=== PATIENT | female | born 1985 | race Caucasian/White ===

== ENCOUNTER 2019-02-09 12:46 | Emergency (ER) | payer SELFPAY ==
[~2019-02-09] VITALS: Ht 152.4 cm; Wt 63.5 kg
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
[2019-02-09 14:44] LABS: BASOPHILS % (AUTO) 0.3 % (0.0-2.0); EOSINOPHILS % (AUTO) 0.1 % (0.0-6.0); HEMATOCRIT 40 % (33-45); HEMOGLOBIN 13.1 g/dL (11.5-14.8); LYMPHOCYTES # (AUTO) 2.5 /CMM (0.8-4.8); LYMPHOCYTES % (AUTO) 18.4 % (20.0-44.0); MEAN CORPUSCULAR HGB CONC 33 g/dl (31.0-36.0); MEAN CORPUSCULAR VOLUME 85 fL (82-100); MONOCYTES # (AUTO) 0.6 /CMM (0.1-1.30); MONOCYTES % (AUTO) 4.4 % (2.0-12.0); NEUTROPHILS # (AUTO) 10.3 /CMM (1.8-8.9); NEUTROPHILS % (AUTO) 76.8 % (43.0-81.0); PLATELET COUNT (AUTO) 377 /CMM (150-450); RED BLOOD CELL COUNT(AUTO) 4.72 MIL/uL (4.0-5.2); WHITE BLOOD COUNT (AUTO) 13.4 K/uL (4.3-11.0)
[2019-02-09 14:49] LABS: APPEARANCE,URINE Cloudy (CLEAR); BILIRUBIN,URINE Negative (NEGATIVE); BLOOD, URINE Trace-lysed Ery/uL (NEGATIVE); COLOR,URINE Yellow (YELLOW); KETONES,URINE 15 (NEGATIVE); LEUKOCYTE ESTERASE ,URINE Small (NEGATIVE); NITRITE, URINE Positive (NEGATIVE); PH,URINE 5.5 (5.0-8.0); PROTEIN,URINE Trace mg/dl (NEGATIVE); UGLUCOSE Negative (NEGATIVE); UROBILINOGEN,URINE 0.2 EU/dL (0.2)
[2019-02-09 14:51] LABS: CALCIUM, SERUM 9.4 mg/dL (8.5-10.1); CARBON DIOXIDE 31 mmol/L (21-32); CHLORIDE 103 mmol/L (98-107); CREATININE 0.7 mg/dL (0.6-1.3); GLUCOSE 95 mg/dL (74-106); POTASSIUM 3.3 mmol/L (3.5-5.1); SODIUM SERUM 144 mmol/L (136-145); UREA NITROGEN, BLOOD 14 mg/dL (7-18)
[2019-02-09 14:56] LABS: ALANINE AMINOTRANSFERASE 101 U/L (12-78); ALBUMIN 3.6 g/dL (3.4-5.0); ALKALINE PHOSPHATASE 71 U/L (46-116); ASPARTATE AMINOTRANSFERASE 117 U/L (15-37); BILIRUBIN,DIRECT 0.2 mg/dL (0.0-0.2); BILIRUBIN,TOTAL 0.6 mg/dL (0.2-1.0); TOTAL PROTEIN, SERUM 7.4 g/dL (6.4-8.2)
--- NOTE | 2019-02-09 14:56 | NUR ---
PT TO CT AT THIS TIME
[2019-02-09 14:59] LABS: ACETAMINOPHEN 0 ug/ml (10-30); ALCOHOL, BLOOD < 3 mg/dL (0-0); SALICYLATE 1.3 mg/dL (2.8-20.0)
[2019-02-09] MEDS ORDERED: IV NS 0.9% 1,000 ML BAG IV ONE (15:00)
[2019-02-09 15:21] LABS: RBC,URINE 0-3 /HPF (0-2)
[2019-02-09 15:22] LABS: BACTERIA,URINE 4+ /HPF (None Seen); SQUAMOUS EPITHELIAL CELL,UR Moderate /HPF (None Seen); URINE AMORPHOUS URATE Moderate /HPF (None Seen)
[2019-02-09] MEDS ORDERED: CEFTRIAXONE 1GM BAG (ER ONLY) 1 GM/50 ML PIGGYBACK IV ONE (15:30)
[2019-02-09] MEDS: POTASSIUM CL. PREMIX PERIPHER. 50 ML IV SCH ×4 (15:36→19:11)
[2019-02-09] MEDS ORDERED: CEFTRIAXONE 1GM BAG (ER ONLY) 50 ML IV ONE (15:41)
[2019-02-09] MEDS ORDERED: POTASSIUM CL. PREMIX PERIPHER. 200 ML ONE (15:41)
[2019-02-09] MEDS ORDERED: TETRAcaine 5 ML BOTTLE EACHEYE ONE (18:00)
[2019-02-09] MEDS ORDERED: FLUORESCEIN SODIUM OPHTH 1 EA STRIP OP ONE (18:00)
[2019-02-09] MEDS ORDERED: FLUORESCEIN SODIUM OPHTH 1 EA STRIP ONE (19:02)
[2019-02-09] MEDS ORDERED: LORAZEPAM INJ 2 MG/ML VIAL IV ONE (19:30)
[2019-02-09] MEDS ORDERED: KETOROLAC TROMETHAMINE INJ 30 MG/ML VIAL IV ONE (19:30)
--- NOTE | 2019-02-09 19:37 | NUR ---
GUS LACEY SPEAKING TO RIGO BROTHERS AT THIS TIME REGARIDNG EVAL .
--- NOTE | 2019-02-09 19:52 | NUR ---
TALKED WITH RIGO AND SHE IS NOT COMFORTABLE WITH BREAKING THE HOLD. SHE STATES TO AT LEAST RE-EVALUATE IN [address] TO PL[address] PT IN THE MORNING.
[2019-02-09] MEDS: CIPROFLOXACIN HCL 0.3% 5 ML BOTTLE EACHEYE SCH ×2 (20:00→21:00)
[2019-02-09] MEDS ORDERED: LORAZEPAM INJ 2 MG/ML VIAL ONE (20:25)
[2019-02-09] MEDS ORDERED: KETOROLAC TROMETHAMINE INJ 30 MG/ML VIAL ONE (20:25)
--- NOTE | 2019-02-09 20:26 | NUR ---
CALLED PHARM FOR CIPRO EYE DROPS.
--- NOTE | 2019-02-09 20:48 | NUR ---
PER PHARMACY CIPRO EYE DROPS; AVAILABLE ON HAND: GAVIFLOCOCIN; GIVEN TO BOTH EYE PER ERIK BECERRA
--- NOTE | 2019-02-09 21:50 | NUR ---
GAVIFLOCOCIN 1 DROP TO BOTH EYES; GIVEN Q1HR PER ORDER
--- NOTE | 2019-02-10 00:41 | NUR ---
Received report from ENRIQUETA lawler pt on 5150 hold per [employer], pending psych eval.
--- NOTE | 2019-02-10 01:00 | NUR ---
GAVIFLOCOCIN 1 DROP TO BOTH EYES; GIVEN Q1HR PER ORDER
--- NOTE | 2019-02-10 02:00 | NUR ---
GAVIFLOCOCIN 1 DROP TO BOTH EYES; GIVEN Q1HR PER ORDER
--- NOTE | 2019-02-10 03:00 | NUR ---
GATIFLOCOCIN 1 DROP TO BOTH EYES; GIVEN Q1HR PER ORDER.
--- NOTE | 2019-02-10 04:00 | NUR ---
GATIFLOCOCIN 1 DROP TO BOTH EYES; GIVEN Q1HR PER ORDER.
[2019-02-10] MEDS ORDERED: MISCELLANEOUS MED 1 EA EA XX ONE (04:30)
--- NOTE | 2019-02-10 05:00 | NUR ---
GATIFLOCOCIN 1 DROP TO BOTH EYES; GIVEN Q1HR PER ORDER.
--- NOTE | 2019-02-10 06:00 | NUR ---
GATIFLOCOCIN 1 DROP TO BOTH EYES; GIVEN Q1HR PER ORDER.
--- NOTE | 2019-02-10 06:55 | NUR ---
REPORT GIVEN TO ENRIQUETA ELAM FOR CONTINUITY OF CARE.
--- NOTE | 2019-02-10 08:08 | NUR ---
PAGED PET TEAM (REID) FOR EVAL
--- NOTE | 2019-02-10 08:24 | NUR ---
PT RESTING CALMLY ON 5150 HOLD ALL LABS DONE PENDING PLACEMENT TO PSYCH-FACILITY PT GIVEN MEAL TRAY WILL CONTINUE TO MONITOR VITAL SIGNS STABLE
--- NOTE | 2019-02-10 10:52 | NUR ---
PT SEEN BY CRISIS TEAM EVALUATED AND GIVEN PRESCRIPTION WILL FOLLOW UP WITHPMD.
--- NOTE | 2019-02-10 11:25 | NUR ---
PT GIVEN MEAL TRAY CLOTHES AND TAP CARD PT HOMELESS CHOICING TO BE DISCHARGE TO COMMUNITY
[2019-02-10 11:55] VITALS: BP 156/61
== END 2019-02-10 11:56 | disposition home or self-care (01) ==
LOC: ER 12:48
DX: S50.812A Abrasion of left forearm, initial encounter (principal); R45.851 Suicidal ideations; R40.4 Transient alteration of awareness; E86.0 Dehydration; F19.10 Other psychoactive substance abuse, uncomplicated; F11.10 Opioid abuse, uncomplicated; F15.10 Other stimulant abuse, uncomplicated; R74.0 Nonspecific elevation of levels of transaminase and lactic acid dehydrogenase [LDH]; E87.6 Hypokalemia; N39.0 Urinary tract infection, site not specified; D72.829 Elevated white blood cell count, unspecified; G93.0 Cerebral cysts; H17.9 Unspecified corneal scar and opacity; F17.200 Nicotine dependence, unspecified, uncomplicated; Z59.0 Homelessness; X78.8XXA Intentional self-harm by other sharp object, initial encounter; Y93.89 Activity, other specified; Y92.89 Other specified places as the place of occurrence of the external cause; Y99.8 Other external cause status
CPT/HCPCS: 36415; 70450; 80048; 80076; 80305; 80307; 80329; 81001; 84702; 84703; 85025; 87077; 87086; 87186; 96365; 96366; 96368; 96375; 99285; G0480; J0696; J1885; J2060; J3480; 81000-TC

== ENCOUNTER 2019-02-21 03:20 | Emergency (ER) | payer OTHER, MEDICAID ==
[~2019-02-21] VITALS: Ht 162.6 cm; Wt 65.8 kg
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
--- NOTE | 2019-02-21 03:35 | NUR ---
URINE SAMPLE COLLECTED AND SENT TO LAB.
--- NOTE | 2019-02-21 04:03 | NUR ---
BLOOD DRAWN BY LEAD MANUFACTURING ENGINEER.
[2019-02-21 04:15] LABS: CALCIUM, SERUM 9.6 mg/dL (8.5-10.1); CARBON DIOXIDE 28 mmol/L (21-32); CHLORIDE 105 mmol/L (98-107); CREATININE 1.2 mg/dL (0.6-1.3); GLUCOSE 80 mg/dL (74-106); POTASSIUM 3.1 mmol/L (3.5-5.1); SODIUM SERUM 143 mmol/L (136-145); UREA NITROGEN, BLOOD 14 mg/dL (7-18)
[2019-02-21 04:17] LABS: BASOPHILS # (AUTO) 0.1 /CMM (0.0-0.2); BASOPHILS % (AUTO) 0.5 % (0.0-2.0); EOSINOPHILS % (AUTO) 0.2 % (0.0-6.0); HEMATOCRIT 42 % (33-45); HEMOGLOBIN 13.6 g/dL (11.5-14.8); LYMPHOCYTES % (AUTO) 24.6 % (20.0-44.0); MEAN CORPUSCULAR HGB CONC 33 g/dl (31.0-36.0); MEAN CORPUSCULAR VOLUME 85 fL (82-100); MONOCYTES # (AUTO) 1.2 /CMM (0.1-1.30); MONOCYTES % (AUTO) 7.2 % (2.0-12.0); NEUTROPHILS % (AUTO) 67.5 % (43.0-81.0); PLATELET COUNT (AUTO) 409 /CMM (150-450); WHITE BLOOD COUNT (AUTO) 16.3 K/uL (4.3-11.0)
[2019-02-21 04:25] LABS: ALANINE AMINOTRANSFERASE 35 U/L (12-78); ALBUMIN 4.3 g/dL (3.4-5.0); ALCOHOL, BLOOD < 3 mg/dL (0-0); ALKALINE PHOSPHATASE 77 U/L (46-116); ASPARTATE AMINOTRANSFERASE 23 U/L (15-37); BILIRUBIN,DIRECT 0.1 mg/dL (0.0-0.2); BILIRUBIN,TOTAL 0.7 mg/dL (0.2-1.0); TOTAL PROTEIN, SERUM 7.9 g/dL (6.4-8.2)
[2019-02-21 04:26] LABS: ACETAMINOPHEN 0 ug/ml (10-30); SALICYLATE 0.8 mg/dL (2.8-20.0)
[2019-02-21] MEDS ORDERED: OLANZAPINE 5 MG TABLET PO ONE (04:30)
[2019-02-21] MEDS ORDERED: OLANZAPINE 5 MG TABLET ONE (04:59)
[2019-02-21 05:51] LABS: APPEARANCE,URINE Slightly Cloudy (CLEAR); BILIRUBIN,URINE SMALL (NEGATIVE); BLOOD, URINE Trace-lysed Ery/uL (NEGATIVE); COLOR,URINE Dark (YELLOW); KETONES,URINE Trace (NEGATIVE); LEUKOCYTE ESTERASE ,URINE Negative (NEGATIVE); NITRITE, URINE Negative (NEGATIVE); PROTEIN,URINE Trace mg/dl (NEGATIVE); UGLUCOSE Negative (NEGATIVE); UROBILINOGEN,URINE 0.2 EU/dL (0.2)
--- NOTE | 2019-02-21 06:01 | NUR ---
RECEIVED CALL FROM [facility]. PT HAS [facility] INSURANCE. AWAITING TRANSFER INFORMATION. AUTH#[id number].
[2019-02-21 06:15] LABS: BACTERIA,URINE Few /HPF (None Seen); SQUAMOUS EPITHELIAL CELL,UR Moderate /HPF (None Seen); URIC ACID CRYSTALS,URINE Few /HPF (None Seen); URINE AMORPHOUS URATE Few /HPF (None Seen); WBC,URINE 0-2 /HPF (0-3)
[2019-02-21 06:16] LABS: MUCUS,URINE Few /LPF (None Seen)
--- NOTE | 2019-02-21 06:34 | NUR ---
ESTRADA REQUESTING PATIENT BE EVALUATED HERE BY ELECTRIC POWER LINE REPAIRER. PLEASE CALL AFTER PT EVALUATION
--- NOTE | 2019-02-21 08:35 | NUR ---
CALLED [facility] [phone] WILL COME BY.
--- NOTE | 2019-02-21 09:43 | NUR ---
patient resting, sitter at bedside for constant monitoring.
--- NOTE | 2019-02-21 10:04 | NUR ---
Mahnaz RANCH HAND SUPERVISOR at bedside for eval.
--- NOTE | 2019-02-21 10:41 | NUR ---
Called [facility] and informed regarding patient that verbalized that she is not SI as per Mahnaz ANALYST COMPETITIVE INTELLIGENCE and made aware.
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
--- NOTE | 2019-02-21 12:01 | NUR ---
CALLED [facility] [employer]. SPOKE TO BRAIDING MACHINE OPERATOR 586. SHE DISPATCHED OFFICERS
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
[2019-02-21 12:27] VITALS: BP 141/76
--- NOTE | 2019-02-21 12:34 | NUR ---
Laurie SW at bedside and spoke to the patient.
--- NOTE | 2019-02-21 12:48 | NUR ---
[employer] at bedside
--- NOTE | 2019-02-21 13:36 | NUR ---
CALLED SW AND LEFT A MESSAGE TO HAVE HER COME SPEAK TO PT
--- NOTE | 2019-02-21 13:42 | NUR ---
SW WAS SPEAKING TO PT
--- NOTE | 2019-02-21 13:48 | NUR ---
Danica silva in [facility] - 02/21/19 at 1400 by LISETTE [phone]
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
--- NOTE | 2019-02-21 14:07 | NUR ---
Patient given written and verbal discharge instructions. Patient verbalizes understanding of instructions. Patient is ambulatory with steady gait. Refuses offer of usp placement. Patient given list of available shelters in surrounding area.
== END 2019-02-21 14:07 | disposition home or self-care (01) ==
LOC: ER 03:20
DX: R45.851 Suicidal ideations (principal); F31.9 Bipolar disorder, unspecified; F20.9 Schizophrenia, unspecified; I10 Essential (primary) hypertension; E11.9 Type 2 diabetes mellitus without complications; F10.10 Alcohol abuse, uncomplicated; F17.200 Nicotine dependence, unspecified, uncomplicated; Y90.0 Blood alcohol level of less than 20 mg/100 ml; Z60.2 Problems related to living alone
CPT/HCPCS: 36415; 80048; 80076; 80305; 80307; 80329; 81001; 85025; 99284; 99406; G0480; 81000-TC

== ENCOUNTER 2020-11-19 15:47 | Inpatient (IN) | payer MEDICAID, OTHER ==
[2020-11-19] VITALS (12 sets, daily range): BP systolic 104–133; BP diastolic 58–84
[~2020-11-19] VITALS: Ht 162.6 cm; Wt 67.6 kg
[2020-11-19] MEDS ORDERED: AMMONIA NASAL INHALATION 1 EA PACK NAS ONE (15:49)
--- NOTE | 2020-11-19 16:04 | NUR ---
urine collected and sent to the lab
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
--- NOTE | 2020-11-19 16:13 | NUR ---
PT TO CT VIA [facility].
[2020-11-19] MEDS ORDERED: FLUT16SP16 BNOSTRILS (16:18)
[2020-11-19] MEDS ORDERED: IBUP-1957 PO (16:18)
[2020-11-19] MEDS ORDERED: OMEP20CA15 PO (16:18)
[2020-11-19] MEDS ORDERED: DIVA-78 PO (16:18)
[2020-11-19] MEDS ORDERED: FLUT1BLS IH (16:18)
[2020-11-19] MEDS ORDERED: LISI20TA30 PO (16:18)
[2020-11-19] MEDS ORDERED: ALBU18HF2 IH (16:18)
[2020-11-19] MEDS ORDERED: SUMA50TA17 PO (16:18)
[2020-11-19] MEDS ORDERED: LIDO30AD10 TP (16:18)
[2020-11-19] MEDS ORDERED: QUET100T PO (16:18)
[2020-11-19] MEDS ORDERED: BUSP10TA3 PO (16:18)
[2020-11-19 16:21] LABS: BASOPHILS # (AUTO) 0.1 K/uL (0.0-0.2); BASOPHILS % (AUTO) 0.4 % (0.0-2.0); EOSINOPHILS % (AUTO) 0.6 % (0.0-6.0); HEMATOCRIT 39 % (33-45); HEMOGLOBIN 12.3 g/dL (11.5-14.8); LYMPHOCYTES # (AUTO) 3.9 K/uL (0.8-4.8); LYMPHOCYTES % (AUTO) 26.8 % (20.0-44.0); MEAN CORPUSCULAR HGB CONC 32 g/dl (31.0-36.0); MEAN CORPUSCULAR VOLUME 84 fL (82-100); MONOCYTES # (AUTO) 1.2 K/uL (0.1-1.30); MONOCYTES % (AUTO) 7.9 % (2.0-12.0); NEUTROPHILS # (AUTO) 9.3 K/uL (1.8-8.9); NEUTROPHILS % (AUTO) 64.3 % (43.0-81.0); PLATELET COUNT (AUTO) 334 K/uL (150-450); RED BLOOD CELL COUNT(AUTO) 4.58 MIL/uL (4.0-5.2); WHITE BLOOD COUNT (AUTO) 14.5 K/uL (4.3-11.0)
[2020-11-19 16:33] LABS: CALCIUM, SERUM 8.8 mg/dL (8.5-10.1); CARBON DIOXIDE 26 mmol/L (21-32); CHLORIDE 105 mmol/L (98-107); CREATININE 0.7 mg/dL (0.6-1.3); GLUCOSE 82 mg/dL (74-106); POTASSIUM 3.8 mmol/L (3.5-5.1); SODIUM SERUM 144 mmol/L (136-145); UREA NITROGEN, BLOOD 18 mg/dL (7-18)
[2020-11-19 16:35] LABS: BILIRUBIN,URINE Negative (NEGATIVE); COLOR,URINE YELLOW (YELLOW); LEUKOCYTE ESTERASE ,URINE Negative (NEGATIVE); NITRITE, URINE Negative (NEGATIVE); PROTEIN,URINE Negative (NEGATIVE); UGLUCOSE Negative (NEGATIVE); UROBILINOGEN,URINE 0.2 EU/dL (0.2)
[2020-11-19 16:39] LABS: ALANINE AMINOTRANSFERASE 19 U/L (12-78); ALBUMIN 4.3 g/dL (3.4-5.0); ALCOHOL, BLOOD < 3 mg/dL (0-0); ALKALINE PHOSPHATASE 69 U/L (46-116); ASPARTATE AMINOTRANSFERASE 17 U/L (15-37); BILIRUBIN,DIRECT 0.1 mg/dL (0.0-0.2); BILIRUBIN,TOTAL 0.5 mg/dL (0.2-1.0)
[2020-11-19 16:40] LABS: ACETAMINOPHEN < 10 ug/ml (10-30)
[2020-11-19 16:48] LABS: BACTERIA,URINE Rare /HPF (None Seen); RBC,URINE 21-50 /HPF (0-2); WBC,URINE 0-2 /HPF (0-3)
--- NOTE | 2020-11-19 17:11 | NUR ---
PT ASLEEP, WILL MOVE WITH PAINFUL STIMULI, VSS. RR EVEN & UNLABORED. ON TELE, SR. O2 SAT 100% ON 2L. WILL CONT TO MONITOR.
[2020-11-19 17:18] LABS: VALPROIC ACID 285 ug/mL (50-100)
[2020-11-19] MEDS ORDERED: PIPERACILLIN /TAZOBACTAM 3.375 G in IV D5W 50 ML IV ONE (17:30)
[2020-11-19] MEDS ORDERED: IV NS 0.9% 1,000 ML IV ONE ×2 (17:30)
[2020-11-19] MEDS ORDERED: NALOXONE HCL 0.4 MG/ML AMPUL ONE (17:59)
[2020-11-19] MEDS ORDERED: NALOXONE HCL 0.4 MG/ML AMPUL IV ONE (18:00)
--- NOTE | 2020-11-19 18:22 | NUR ---
CALLED NURSING SUP FOR ICU BED.
--- NOTE | 2020-11-19 18:28 | NUR ---
NURSING SUP GAVE ICU 257.
[2020-11-19] MEDS ORDERED: NS 0.9% IV ONE (18:30)
[2020-11-19] MEDS ORDERED: MAG HYDROX/AL HYDROX/SIMETH 30 ML UDC PO PRN (18:30)
[2020-11-19] MEDS ORDERED: ONDANSETRON HCL/PF 4 MG/2 ML VIAL IVP PRN (18:30)
[2020-11-19] MEDS ORDERED: NOREPINEPHRINE 8 MG in IV NS 0.9% 242 ML IV PRN (18:30)
[2020-11-19] MEDS ORDERED: MAGNESIUM HYDROXIDE 30 ML UDC PO PRN (18:30)
--- NOTE | 2020-11-19 18:41 | NUR ---
REPORT GIVEN TO ENRIQUETA HARDWICK FOR ANDREA.
[2020-11-19] MEDS ORDERED: ONDANSETRON HCL/PF 4 MG/2 ML VIAL ONE (18:45)
--- NOTE | 2020-11-19 19:02 | NUR ---
20MG OF ETOMIDATE IVP & 100MG OF VERURONIUM IVP GIVEN PER DR. FERRIS FOR INTUBATION.
[2020-11-19] MEDS ORDERED: PROPOFOL 100 ML IV PRN (19:30)
[2020-11-19] MEDS ORDERED: FENTANYL CITRAT IV 2,500 MCG in IV NS 0.9% 200 ML IV PRN (19:30)
[2020-11-19] MEDS ORDERED: PROPOFOL 100 ML ONE (19:31)
--- NOTE | 2020-11-19 19:44 | NUR ---
OG TUBE INSERTED 55CM ON THE LIP. VERIFIED BY TWO NURSES.
[2020-11-19] MEDS ORDERED: VANCOMYCIN 1 GM VIAL ONE (19:58)
[2020-11-19] MEDS: VANCOMYCIN 1 GM in IV D5W 250 ML IV SCH (20:06)
[2020-11-19 20:23] LABS: ABG BASE EXCESS -9.5 mmol/L; ABG PCO2 40.6 mmHg (35.0-45.0); ABG PH 7.246 (7.350-7.450); ABG PO2 376.6 mmHg (75.0-100.0); AaDO2 295.8 mmHg; COHb 0.4 % (0.5-1.5); MetHb 0.5 % (0.0-1.5); O2Hb 98.1 % (94.0-97.0); PEEP,BG 0 cm H2O; SITE, ABG Right Brachial; VT, ABG 500 mL
--- NOTE | 2020-11-19 20:50 | NUR ---
RECEIVED PT FROM ER VIA [facility] ORALLY INTUBATED OF ETT 7/23CM ,AND SEDATED, VENT SETTING PER MD FIO2 50% PEEP 0 SPO2 99%, TOLERATING WELL, SAFELY TRANSFER FROM [facility] TO BED, HOOKED TO MONITOR WITH READING SINUS RHYTHM 80'S,V/S CHECKED AND RECORDED, PT HAVE RIJ TLC AND LAC# 18 WITH ONGOING PROPOFOL @ 5MCG/KG/MIN AND LEVOPHED @ 0.2 MCG/KG/MIN INFUSING WELL, PT HAVE BILATERAL WRIST SOFT RESTRAINT FOR SELF EXTUBATION PRECAUTION,HEAD TO TOE ASSESSMENT DONE, INITIAL ASSESSMENT DONE, SAFETY PRECAUTION INITIATED BED ON LOWEST POSITION AND LOCKED SIDE RAILS UP X2 CALL LIGHT WITHIN REACH WILL CONT TO MONITOR
[2020-11-19] MEDS: PROPOFOL 100 ML IV PRN (20:54)
[2020-11-19] MEDS: NOREPINEPHRINE 8 MG in IV NS 0.9% 242 ML IV PRN (21:04)
[2020-11-19] MEDS: IV NS 0.9% 1,000 ML IV PRN (21:04)
--- NOTE | 2020-11-19 21:12 | NUR ---
RECEIVED PT INTUBATED 7.0 ETT SECURED AT 23CM LIP LINE. NO RESP DISTRESS. PT TOLERATING VENT SETTINGS. SX'D SMALL AMT OF THIN WHITE SECRETIONS. VENT ALARMS SET AND AUDIBLE. CONTINUE TO MONITOR. Addendum: 11/19/20 at 2113 by DAYANARA LERMA RT Amended: Links added.
[2020-11-19] MEDS: PIPERACILLIN /TAZOBACTAM 3.375 G in IV D5W 100 ML IV SCH (22:44)
[2020-11-20] VITALS (96 sets, daily range): BP systolic 68–147; BP diastolic 36–97
[2020-11-20 04:16] LABS: BASOPHILS % (AUTO) 0.2 % (0.0-2.0); EOSINOPHILS % (AUTO) 0.1 % (0.0-6.0); HEMATOCRIT 38 % (33-45); HEMOGLOBIN 12.1 g/dL (11.5-14.8); LYMPHOCYTES # (AUTO) 3.4 K/uL (0.8-4.8); LYMPHOCYTES % (AUTO) 21.1 % (20.0-44.0); MEAN CORPUSCULAR HGB CONC 32 g/dl (31.0-36.0); MEAN CORPUSCULAR VOLUME 85 fL (82-100); MONOCYTES # (AUTO) 1.1 K/uL (0.1-1.30); MONOCYTES % (AUTO) 6.8 % (2.0-12.0); NEUTROPHILS # (AUTO) 11.5 K/uL (1.8-8.9); NEUTROPHILS % (AUTO) 71.8 % (43.0-81.0); PLATELET COUNT (AUTO) 342 K/uL (150-450); RED BLOOD CELL COUNT(AUTO) 4.43 MIL/uL (4.0-5.2)
[2020-11-20] MEDS: PIPERACILLIN /TAZOBACTAM 3.375 G in IV D5W 100 ML IV SCH ×3 (04:18→21:25)
[2020-11-20 04:34] LABS: ALBUMIN 3.4 g/dL (3.4-5.0); BILIRUBIN,TOTAL 0.5 mg/dL (0.2-1.0); CALCIUM, SERUM 7.5 mg/dL (8.5-10.1); CREATININE 0.9 mg/dL (0.6-1.3); MAGNESIUM 1.9 mg/dL (1.8-2.4); PHOSPHORUS 2.6 mg/dL (2.5-4.9); POTASSIUM 3.2 mmol/L (3.5-5.1); TOTAL PROTEIN, SERUM 6.1 g/dL (6.4-8.2)
[2020-11-20 04:43] LABS: THYROID STIMULATING HORMONE 0.471 uIU/mL (0.358-3.74)
[2020-11-20] MEDS: IV NS 0.9% 1,000 ML IV PRN ×3 (05:01→21:33)
[2020-11-20] MEDS: PROPOFOL 100 ML IV PRN ×3 (06:05→21:25)
--- NOTE | 2020-11-20 06:49 | NUR ---
PT ON BED SEDATED ON ETT/VENT SETTING PER MD FIO2 40% SPO2 100% NO SIGN OF ANY RESPIRATORY DISTRESS NOTED,TELE MONITOR READS SINUS RHYTHM 60'S, ON PROPOFOL @ 20 MCG/KG/MIN LEVOPHED @ 0.1 MCG/KG/MIN AND NS @ 125ML/HR INFUSING WELL, ALL NEEDS ATTENDED, STILL ON BILATERAL WRIST SOFT RESTRAINTS FOR SELF EXTUBATION PRECAUTION, CIRCULATION WAS CHECKED REGULARLY, BED ON LOWEST POSITION AND LOCKED SIDE RAILS UP X2 WILL ENDORSED TO AM SHIFT NURSE
[2020-11-20] MEDS ORDERED: POTASSIUM CHLORIDE 20 MEQ POWDER PACKET GT SCH (08:00)
[2020-11-20] MEDS: VANCOMYCIN 1 GM in IV D5W 250 ML IV SCH (08:23)
[2020-11-20] MEDS: HYDROCORTISONE SOD SUCCINATE 100 MG/2 ML VIAL IV SCH ×3 (08:33→21:26)
[2020-11-20] MEDS: ASPIRIN 81 MG TAB.CHEW PO SCH (08:33)
[2020-11-20] MEDS ORDERED: FEE EMEERGENCY 1 MIN EA MC ONE (10:04)
[2020-11-20] MEDS ORDERED: ETOMIDATE 2 MG/ML VIAL IV ONE (10:04)
[2020-11-20] MEDS ORDERED: ROCURONIUM BROMIDE 50 MG/5 ML IV ONE (10:04)
[2020-11-20] MEDS: NOREPINEPHRINE 8 MG in IV NS 0.9% 242 ML IV PRN (10:07)
[2020-11-20 11:03] LABS: ABG BASE EXCESS -6.5 mmol/L; ABG OXYGEN SATURATION 98.9 % (92.0-98.5); ABG PCO2 35.3 mmHg (35.0-45.0); ABG PH 7.337 (7.350-7.450); AaDO2 84.6 mmHg; COHb 0.1 % (0.5-1.5); MetHb 0.2 % (0.0-1.5); O2Hb 98.6 % (94.0-97.0); SITE, ABG Right Radial; VT, ABG 500 mL
--- NOTE | 2020-11-20 11:06 | NUR ---
RN NOTE 0715: Received patient with ETT to vent, tolerated settings. With RIJ TLC intact, on Levo @ 0.1mcg and Diprivan @ 20mcg, will titrate as ordered. With OGT intact, clamped. Rudolph cath intact, noted with clear yellow urine drained to BSD. IVF infusing as ordered. 0830: Rendered sedation vacation, patient is agitated AEB moving extremities and kicking. Titrated Diprivan for sedation, see IV spreadsheet. 1030: CN called poison control, with recommendations carried out per MD, ordered Ammonia level and Depakote level. If Ammonia level is greater than 100, loading L Carnitine 100mg/kg IV infusion for 30min and maintenance L Carnitine 50mg/kg q8 IV until clinically improves. 1100: S/E by Dr. Peterson, aware for ABG result, RT placed FIO2 to 30%. No weaning for today.
[2020-11-20] MEDS ORDERED: IV D5/0.45 NACL 1,000 ML IV ONE (11:30)
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
[2020-11-20 11:48] LABS: VALPROIC ACID 122 ug/mL (50-100)
[2020-11-20 11:49] LABS: SERUM AMMONIA 20 umol/L (11-32)
--- NOTE | 2020-11-20 13:39 | NUR ---
RN NOTE production control clerk informed me Dr. Andrews will be the PCP for the patient here. Informed Dr. Castro and Dr. Andrews.
--- NOTE | 2020-11-20 14:30 | NUR ---
RN NOTE S/E by jeffrey Poe per .
--- NOTE | 2020-11-20 16:30 | NUR ---
RN NOTE Visited by maxim Ramirez [phone], brought belongings and added to list. Updated re: patient's condition.
[2020-11-20] MEDS ORDERED: IV NS 0.9% 500 ML IV ONE (18:00)
--- NOTE | 2020-11-20 19:35 | NUR ---
RN NOTES RECEIVED PT ORALLY INTUBATED WITH ETT 7 AND 23 CM AT LIPLINE WITH VENT SETTING AC 16 TV 500 AND FIO2 30%. PATIENT IS AWAKE COUGHING OUT HARD ON VENT ON SEDATION PROPOFOL TITRATED PROTOCOL ORDER. KEPT PT SEDATED. SR ON MONITOR. OGT INPLACED PATENCY CHECKED. WITH IV SITE ON LAC AND RIJ RUNNING WITH NS @ 125 ML/HR , PROPOFOL INCREASED ORDERED PROTOCOL AND LEVOPHED 0.1 MCG/KG/MIN TITRATED ORDERED. VALENCIA CATH DRAINED WITH YELLOW COLOR URINE. KEPT PT CLEAN AND COMFORTABLE IN BED. WILL CONTINUE TO MONITOR.
--- NOTE | 2020-11-20 21:18 | NUR ---
RN NOTES RECEIVED A CALL FROM POISON CONTROL SPOKE TO EDDIE AND UPDATED REGARDING PATIENT VALPROIC AND AMMONIA EVEL PER EDDIE NO SPECIFIC NEED TO DO RIGHT NOW CAUSE AMMONIA LEVEL IS OK.
[2020-11-21] VITALS (75 sets, daily range): BP systolic 84–159; BP diastolic 39–90
[2020-11-21] MEDS: NOREPINEPHRINE 8 MG in IV NS 0.9% 242 ML IV PRN (00:31)
[2020-11-21 04:27] LABS: HEMATOCRIT 34 % (33-45); LYMPHOCYTES # (AUTO) 1.4 K/uL (0.8-4.8); LYMPHOCYTES % (AUTO) 9.4 % (20.0-44.0); MEAN CORPUSCULAR HGB CONC 32 g/dl (31.0-36.0); MEAN CORPUSCULAR VOLUME 85 fL (82-100); MONOCYTES % (AUTO) 6.4 % (2.0-12.0); NEUTROPHILS # (AUTO) 12.9 K/uL (1.8-8.9); NEUTROPHILS % (AUTO) 84.2 % (43.0-81.0); PLATELET COUNT (AUTO) 294 K/uL (150-450); RED BLOOD CELL COUNT(AUTO) 4.01 MIL/uL (4.0-5.2); WHITE BLOOD COUNT (AUTO) 15.3 K/uL (4.3-11.0)
[2020-11-21] MEDS: PROPOFOL 100 ML IV PRN ×2 (04:34→09:53)
[2020-11-21] MEDS: PIPERACILLIN /TAZOBACTAM 3.375 G in IV D5W 100 ML IV SCH ×3 (04:35→21:49)
[2020-11-21] MEDS: HYDROCORTISONE SOD SUCCINATE 100 MG/2 ML VIAL IV SCH ×3 (04:37→21:49)
[2020-11-21 04:39] LABS: ALBUMIN 2.8 g/dL (3.4-5.0); BILIRUBIN,TOTAL 0.2 mg/dL (0.2-1.0); CALCIUM, SERUM 6.8 mg/dL (8.5-10.1); PHOSPHORUS 3.4 mg/dL (2.5-4.9); POTASSIUM 3.4 mmol/L (3.5-5.1); TOTAL PROTEIN, SERUM 5.3 g/dL (6.4-8.2)
[2020-11-21] MEDS: IV NS 0.9% 1,000 ML IV PRN (05:17)
--- NOTE | 2020-11-21 07:16 | NUR ---
RN NOTES PATIENT REMAINED ORALLY INTUBATED WITH THE SAME SETTING . TOLERATED WELL. SR ON MONITOR. AFEBRILE. CONTINUE WITH LOW DOSE OF LEVOPHED, PROPOFOL TITRATED GOAL SEDATION ACHIEVE AND IVF NS TOLERATED WELL. NO SIGNIFICANT CHANGES NOTED. VALENCIA CATH DRAINED WELL WITH LIGHT GREENISH COLOR OUTPUT. BED BATH DONE AND TOLERATED WELL. ENDORSED CONTINUITY OF CARE TO AM NURSE.
--- NOTE | 2020-11-21 07:30 | NUR ---
OPENING NOTE: REPORT RECEIVED FROM TANIA ROBISON. PT INTUBATED AND SEDATED ON PROPOFOL. LEVOPHED INFUSING PER MD ORDERS, CURRENTLY AT 0.04 MCG/MG/MIN. VALENCIA CATHETER DRAINING CLEAR YELLOW URINE. PT IN RESTRAINTS PER MD ORDER. PT CHECKED ON HOURLY AND PRN BY NURSING STAFF.
[2020-11-21] MEDS ORDERED: POTASSIUM CHLORIDE 20 MEQ POWDER PACKET GT SCH (08:30)
[2020-11-21] MEDS: ASPIRIN 81 MG TAB.CHEW PO SCH (09:00)
[2020-11-21] MEDS: ENOXAPARIN SODIUM 40 MG/0.4 ML DISP.SYRIN SQ SCH (09:35)
[2020-11-21] MEDS: Potassium Chloride 20 MEQ in IV NS 0.9% 1,000 ML IV PRN ×2 (09:35→22:48)
[2020-11-21] MEDS ORDERED: LORAZEPAM INJ 2 MG/ML VIAL IV STA (09:55)
[2020-11-21] MEDS ORDERED: DC PROPOFOL WHEN EXTUBATED XX PRN (10:00)
--- NOTE | 2020-11-21 10:15 | NUR ---
PT EXTUBATED AT 1010 PER MD ORDERS WITHOUT DFFICULTY, PT ON ROOM AIR. PT IS NOW A 1:1. STUDENT IN ROOM, RESTRAINTS ON.
[2020-11-21] MEDS: FLUDROCORTISONE 0.1 MG TABLET NG SCH ×2 (13:40→18:25)
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
--- NOTE | 2020-11-21 18:29 | NUR ---
END OF SHIFT NOTE: PT EXTUBATED AT 1010 TODAY, PT IS ON ROOM AIR. VALENCIA CATHETER 685 OUT. LIQUID BM X6, DOESN'T LOOK OR SMELL OF C-DIFF. PT ON REGULAR DIET, ATE ALL OF DINNER. 1:1 SITTER OR NURSING PER MD ORDERS FOR TONIGHT. PT WILL TRANSFER TO MED SURG WITH SITTER. LEVOPHED OFF 1245. PT LETHARGIC YET COOPERATIVE. PT'S KULDEEP LIVE VISITED, APPEARED SUPPORTIVE. NURSING STAFF AT BEDSIDE SINCE EXTUBATION PER MD ORDERS.
--- NOTE | 2020-11-21 19:57 | NUR ---
medical anthropology director/Opening NOtes ICU Nurse Sarah gave report. Patient was transferred to the unit at approximately 1950. Patient's on room air with no respiratory distress noted. Patient has a luis catheter with an output of 685mL noted this far. Patient has a sitter at bedside. Patient's in no acute distress at this time. Safety measures in place: Bed locked, bed alarm on, side rails up x3, and call light within reach of the patient. Will continue to monitor the patient.
[2020-11-22] MEDS: FLUDROCORTISONE 0.1 MG TABLET NG SCH (00:40)
[2020-11-22] MEDS: HYDROCORTISONE SOD SUCCINATE 100 MG/2 ML VIAL IV SCH ×3 (05:42→16:17)
[2020-11-22] MEDS: FLUDROCORTISONE 0.1 MG TABLET PO SCH ×3 (05:42→17:04)
[2020-11-22] MEDS: PIPERACILLIN /TAZOBACTAM 3.375 G in IV D5W 100 ML IV SCH ×3 (05:43→20:18)
[2020-11-22 05:47] LABS: BASOPHILS % (AUTO) 0.3 % (0.0-2.0); HEMATOCRIT 33 % (33-45); HEMOGLOBIN 10.6 g/dL (11.5-14.8); LYMPHOCYTES # (AUTO) 1.1 K/uL (0.8-4.8); LYMPHOCYTES % (AUTO) 9.7 % (20.0-44.0); MEAN CORPUSCULAR HGB CONC 32 g/dl (31.0-36.0); MEAN CORPUSCULAR VOLUME 84 fL (82-100); MONOCYTES # (AUTO) 0.8 K/uL (0.1-1.30); MONOCYTES % (AUTO) 6.6 % (2.0-12.0); NEUTROPHILS # (AUTO) 9.7 K/uL (1.8-8.9); NEUTROPHILS % (AUTO) 83.4 % (43.0-81.0); PLATELET COUNT (AUTO) 187 K/uL (150-450); RED BLOOD CELL COUNT(AUTO) 3.91 MIL/uL (4.0-5.2); WHITE BLOOD COUNT (AUTO) 11.7 K/uL (4.3-11.0)
[2020-11-22 06:20] LABS: ALBUMIN 2.5 g/dL (3.4-5.0); BILIRUBIN,TOTAL 0.3 mg/dL (0.2-1.0); CALCIUM, SERUM 7.3 mg/dL (8.5-10.1); CREATININE 0.9 mg/dL (0.6-1.3); MAGNESIUM 2.1 mg/dL (1.8-2.4); POTASSIUM 3.8 mmol/L (3.5-5.1); TOTAL PROTEIN, SERUM 5.3 g/dL (6.4-8.2)
[2020-11-22] MEDS: ASPIRIN 81 MG TAB.CHEW PO SCH (08:21)
[2020-11-22] MEDS: ENOXAPARIN SODIUM 40 MG/0.4 ML DISP.SYRIN SQ SCH (08:22)
--- NOTE | 2020-11-22 19:16 | NUR ---
MS RN CLOSING NOTE PATIENT CURRENTLY LYING IN BED, RESTING. EASY TO AROUSE. A/O X2. STABLE ON ROOM AIR - NO SOB, NO DISTRESS/DISCOMFORT NOTED. NO PAIN NOTED. SITTER AT BEDSIDE. VALENCIA CATHETER NOTED - INTACT AND PATENT, DRAINING YELLOW/TEA COLORED URINE TO GRAVITY. IV ACCESS TO RIGHT INTERNAL JUGULAR, 3LUMEN & LEFT AC #18 - RUNNING KCL 20MEQ IN NS @ 100ML/HR. PATIENT IS AMBULATORY TO BATHROOM. RESTRAINTS REMOVED - PATIENT HAS BEEN CALM AND COOPERATIVE THROUGHOUT SHIFT. SAFETY MEASURES IMPLEMENTED. CALL LIGHT WITHIN REACH. WILL ENDORSE TO PRODUCTION PATTERN MAKER NURSE FOR ANDREA.
--- NOTE | 2020-11-22 19:26 | NUR ---
MS RN OPENING NOTE PATIENT A/OX1; SLEEPING IN BED. TOLERATING ROOM AIR WELL WITH NO SOB. NO S/SX OF PAIN OR DISCOMFORT AT THIS TIME. LAC#18G S/L AND R IJ TRIPLE LUMEN S/L; PATENT AND INTACT. SAFETY MEASURES IN PLACE: BED IN LOWEST LOCKED POSITION, SIDE RAILS UPX2, CALL LIGHT WITHIN EASY REACH, BED ALARMS ON, SITTER AT BEDSIDE. PATIENT IN STABLE CONDITION, WILL CONTINUE PLAN OF CARE.
[2020-11-22 20:00] VITALS: BP 143/94
[2020-11-22] MEDS: ACETAMINOPHEN 325 MG TABLET PO PRN ×2 (22:07→22:57)
[2020-11-23] MEDS: Potassium Chloride 20 MEQ in IV NS 0.9% 1,000 ML IV PRN ×2 (00:05→11:59)
[2020-11-23] MEDS: FLUDROCORTISONE 0.1 MG TABLET PO SCH ×4 (00:05→17:35)
[2020-11-23] MEDS: ACETAMINOPHEN 325 MG TABLET PO PRN ×2 (05:43→21:24)
--- NOTE | 2020-11-23 06:51 | NUR ---
MS RN CLOSING NOTE PATIENT A/OX2/3; SLEEPING IN BED. TOLERATING ROOM AIR WELL WITH NO SOB. NO S/SX OF PAIN OR DISCOMFORT AT THIS TIME. LAC#18G K CL 20 MEQ + NS @ 100 ML/HR; PATENT AND INTACT. R IJ TRIPLE LUMEN S/L; PATENT AND INTACT. SAFETY MEASURES IN PLACE: BED IN LOWEST LOCKED POSITION, SIDE RAILS UPX2, CALL LIGHT WITHIN EASY REACH, BED ALARMS ON, SITTER AT BEDSIDE. PATIENT IN STABLE CONDITION, WILL ENDORSE CONTINUE PLAN OF CARE TO ONCOMING MORNING RN.
--- NOTE | 2020-11-23 07:14 | NUR ---
MS RN OPENING NOTE RECEIVED PATIENT RESTING IN BED, PATIENT A/OX2; PATIENT IS BREATHING EVENLY AND NONLABORED TOLERATING ROOM AIR WELL WITH NO SOB. NO S/SX OF PAIN OR DISCOMFORT AT THIS TIME. LAC#18G NS AND K 20 MEQ RUNNING @ 100ML/HR AND R IJ TRIPLE LUMEN S/L; PATENT AND INTACT. SAFETY MEASURES IN PLACE: BED IN LOWEST LOCKED POSITION, SIDE RAILS UPX2, CALL LIGHT WITHIN EASY REACH, BED ALARMS ON, SITTER AT BEDSIDE. PATIENT IN STABLE CONDITION, WILL CONTINUE TO MONITOR
[2020-11-23] MEDS: ENOXAPARIN SODIUM 40 MG/0.4 ML DISP.SYRIN SQ SCH (08:20)
[2020-11-23] MEDS: HYDROCORTISONE SOD SUCCINATE 100 MG/2 ML VIAL IV SCH (08:20)
[2020-11-23] MEDS: ASPIRIN 81 MG TAB.CHEW PO SCH (08:20)
[2020-11-23 08:39] LABS: BASOPHILS % (AUTO) 0.1 % (0.0-2.0); EOSINOPHILS % (AUTO) 0.2 % (0.0-6.0); HEMATOCRIT 33 % (33-45); HEMOGLOBIN 10.9 g/dL (11.5-14.8); LYMPHOCYTES # (AUTO) 3.3 K/uL (0.8-4.8); LYMPHOCYTES % (AUTO) 28.3 % (20.0-44.0); MEAN CORPUSCULAR HGB CONC 33 g/dl (31.0-36.0); MEAN CORPUSCULAR VOLUME 84 fL (82-100); MONOCYTES % (AUTO) 8.8 % (2.0-12.0); NEUTROPHILS # (AUTO) 7.3 K/uL (1.8-8.9); NEUTROPHILS % (AUTO) 62.6 % (43.0-81.0); PLATELET COUNT (AUTO) 206 K/uL (150-450); RED BLOOD CELL COUNT(AUTO) 3.99 MIL/uL (4.0-5.2); WHITE BLOOD COUNT (AUTO) 11.7 K/uL (4.3-11.0)
[2020-11-23] MEDS ORDERED: HYDROCORTISONE SOD SUCCINATE 100 MG/2 ML VIAL IV SCH (09:00)
[2020-11-23 10:17] LABS: IRON, SERUM 106 ug/dl (50-175); TOTAL IRON BINDING CAPACITY 301 ug/dl (250-450)
[2020-11-23 10:29] LABS: ALBUMIN 2.5 g/dL (3.4-5.0); BILIRUBIN,TOTAL 0.2 mg/dL (0.2-1.0); CALCIUM, SERUM 7.7 mg/dL (8.5-10.1); CREATININE 0.8 mg/dL (0.6-1.3); POTASSIUM 3.6 mmol/L (3.5-5.1); TOTAL PROTEIN, SERUM 5.3 g/dL (6.4-8.2)
[2020-11-23 11:17] LABS: SERUM AMMONIA 44 umol/L (11-32)
--- NOTE | 2020-11-23 11:50 | NUR ---
RN NOTE PATIENT COMPLAINING OF SLIGHT HEADACHE ASSESSED VITAL SIGNS BP NOTED 163/102, RECHECKED BP MANUALLY 170/108. MD NOTIFIED WITH NEW ORDER FOR CLONIDINE 0.1 MG Q6HRS PRN >160. MD ALSO ORDERED CMP AND AMMONIA LEVELS FOR TOMORROW. WILL CONTINUE TO MONITOR
[2020-11-23] MEDS ORDERED: CLONIDINE HCL 0.1 MG TABLET PO PRN (12:00)
[2020-11-23] MEDS: DIVALPROEX SODIUM 500 MG TABLET.DR PO SCH (16:20)
--- NOTE | 2020-11-23 18:25 | NUR ---
MS RN CLOSING NOTE PATIENT RESTING IN BED, PATIENT A/OX2; PATIENT IS BREATHING EVENLY AND NONLABORED TOLERATING ROOM AIR WELL WITH NO SOB. NO S/SX OF PAIN OR DISCOMFORT AT THIS TIME. LAC#18G NS K 20 MEQ RUNNING @ 100ML/HR AND R IJ TRIPLE LUMEN S/L; PATENT AND INTACT. ALL MEDICATION GIVEN ORDERED. RESTRAINTS OFF AT THIS TIME. SAFETY MEASURES IN PLACE: BED IN LOWEST LOCKED POSITION, SIDE RAILS UPX2, CALL LIGHT WITHIN EASY REACH, BED ALARMS ON, PATIENT IN STABLE CONDITION, WILL ENDORSE TO ONCOMING SHIFT
--- NOTE | 2020-11-23 19:32 | NUR ---
MS RN OPENING NOTE PATIENT A/OX3; SITTING ON BED. TOLERATING ROOM AIR WELL WITH NO SOB. NO S/SX OF PAIN OR DISCOMFORT AT THIS TIME. LAC#18G NS + K CL 20 MEQ @ 100ML/HR. R IJ TRIPLE LUMEN S/L; PATENT AND INTACT. F/C DRAINING CLEAR YELLOW URINE; PATENT AND INTACT. SAFETY MEASURES IN PLACE: BED IN LOWEST LOCKED POSITION, SIDE RAILS UPX2, CALL LIGHT WITHIN EASY REACH, BED ALARMS ON. DENIES SI AT THIS TIME. PATIENT IN STABLE CONDITION, WILL CONTINUE PLAN OF CARE.
[2020-11-23 20:00] VITALS: BP 152/104
--- NOTE | 2020-11-23 20:45 | NUR ---
MS RN NOTE - ROOM CHANGE PATIENT VSS AND CONDITION IS STABLE. PATIENT AND BELONGINGS MOVED FROM 307-1 TO 304-2.
--- NOTE | 2020-11-23 21:24 | NUR ---
MS RN NOTE - PAIN PT C/O GENERAL PAIN, ADMIN TYLENOL ORDERED. WILL CONTINUE TO REASSESS.
--- NOTE | 2020-11-23 22:00 | NUR ---
MS RN NOTE PATIENT D/DOMINIK F/C PER SARAH'S GLASSWARE FINISHER ORDER. WILL MONITOR FOR PATIENT'S URINE OUTPUT.
[2020-11-24] MEDS: FLUDROCORTISONE 0.1 MG TABLET PO SCH ×2 (00:19→05:10)
[2020-11-24] MEDS: Potassium Chloride 20 MEQ in IV NS 0.9% 1,000 ML IV PRN (03:28)
[2020-11-24 06:28] LABS: ALBUMIN 2.6 g/dL (3.4-5.0); BILIRUBIN,TOTAL 0.2 mg/dL (0.2-1.0); CALCIUM, SERUM 7.8 mg/dL (8.5-10.1); CREATININE 0.6 mg/dL (0.6-1.3); TOTAL PROTEIN, SERUM 5.4 g/dL (6.4-8.2)
--- NOTE | 2020-11-24 07:03 | NUR ---
MS RN CLOSING NOTE PATIENT A/OX3; SLEEPING IN BED. TOLERATING ROOM AIR WELL WITH NO SOB. NO S/SX OF PAIN OR DISCOMFORT AT THIS TIME. LAC#18G K CL 20 MEQ + NS @ 100 ML/HR; PATENT AND INTACT. R IJ TRIPLE LUMEN S/L; PATENT AND INTACT. SAFETY MEASURES IN PLACE: BED IN LOWEST LOCKED POSITION, SIDE RAILS UPX2, CALL LIGHT WITHIN EASY REACH, BED ALARMS ON, SITTER AT BEDSIDE. PATIENT IN STABLE CONDITION, ENDORSED PLAN OF CARE TO ONCOMING MORNING RN.
[2020-11-24] MEDS: ASPIRIN 81 MG TAB.CHEW PO SCH (08:29)
[2020-11-24] MEDS: ENOXAPARIN SODIUM 40 MG/0.4 ML DISP.SYRIN SQ SCH (08:32)
[2020-11-24] MEDS: POTASSIUM CHLORIDE 20 MEQ TAB.PRT.SR PO SCH ×2 (08:39→09:21)
[2020-11-24] MEDS ORDERED: HYDROCORTISONE SOD SUCCINATE 100 MG/2 ML VIAL IV SCH (09:00)
--- NOTE | 2020-11-24 09:06 | NUR ---
SS consult received over the weekend. SW will follow up at a later time.
[2020-11-24 09:22] VITALS: BP 138/86
[2020-11-24] MEDS ORDERED: LISINOPRIL (20MG) 20 MG TABLET PO SCH (09:30)
[2020-11-24] MEDS ORDERED: POTASSIUM CHLORIDE 20 MEQ POWDER PACKET GT SCH (10:00)
[2020-11-24] MEDS ORDERED: POTASSIUM CHLORIDE 20 MEQ TAB.PRT.SR PO SCH (10:00)
[2020-11-24] MEDS: DIVALPROEX SODIUM 500 MG TABLET.DR PO SCH (12:08)
--- NOTE | 2020-11-24 13:58 | NUR ---
RN NOTE RECEIVED ORDER FROM DR MATOS TO REMOVE CENTRAL LINE TRIPLE LUMEN CATHETER AND SUTURE.
--- NOTE | 2020-11-24 14:00 | NUR ---
RN NOTE REMOVED TRIPLE LUMEN CATHETER, TWO STITCHES AND CATHETER INTACT. PRESSURE WAS APPLIED FOR 5 MINUTES NO BLEEDING NOTED. PRESSURE DRESSING APPLIED. PATIENT TOLERATED WELL. WILL CONTINUE TO MONITOR
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
--- NOTE | 2020-11-24 15:12 | NUR ---
GRAIN SACKER NOTE RECEIVED ORDER FOR DISCHARGE. PATIENT IS A/O X4. PATIENT IS BREATHING EVENLY AND NONLABORED ON ROOM AIR. PATIENT DOES NOT COMPLAIN OF PAIN AT THIS TIME. PATIENT IS AMBULATORY. PATIENT'S IV ACCESS WAS REMOVED WITH PRESSURE DRESSING IN PLACE. IJ WAS REMOVED EARLIER NO SIGNS OF BLEEDING NOTED. PATIENT TOLERATED WELL. PATIENT WAS GIVEN DISCHARGE INSTRUCTIONS BOTH VERBALLY AND IN WRITTEN FORM. PATIENT VERBALIZED UNDERSTANDING. PATIENT'S FAMILY MEMBER AT BED SIDE. PATIENT'S BELONGINGS ACCOUNTED FOR, BELONGINGS LIST SIGNED. PATIENT LEFT IN STABLE CONDITION.
== END 2020-11-24 15:10 | disposition home or self-care (01) | DRG 917 ==
LOC: ER 15:55 → ICU 18:50 → MED 11-21 19:25
PROVIDERS: ADMIT Internal Medicine; ATTEND Internal Medicine
PROC: 5A1945Z Respiratory Ventilation, 24-96 Consecutive Hours (ICD-10-PCS; principal; 2020-11-19)
PROC: 0BH18EZ Insertion of Endotracheal Airway into Trachea, Via Natural or Artificial Opening Endoscopic (ICD-10-PCS; 2020-11-19)
DX: T42.6X2A Poisoning by other antiepileptic and sedative-hypnotic drugs, intentional self-harm, initial encounter (principal); G92 Toxic encephalopathy; J69.0 Pneumonitis due to inhalation of food and vomit; J96.01 Acute respiratory failure with hypoxia; I21.A1 Myocardial infarction type 2; E87.2 Acidosis; E87.1 Hypo-osmolality and hyponatremia; E27.40 Unspecified adrenocortical insufficiency; Y92.009 Unspecified place in unspecified non-institutional (private) residence as the place of occurrence of the external cause; Z20.822 Contact with and (suspected) exposure to COVID-19; E11.9 Type 2 diabetes mellitus without complications; I10 Essential (primary) hypertension; M19.90 Unspecified osteoarthritis, unspecified site; F31.9 Bipolar disorder, unspecified; Z88.8 Allergy status to other drugs, medicaments and biological substances; Z79.51 Long term (current) use of inhaled steroids; Z79.899 Other long term (current) drug therapy; E87.6 Hypokalemia; F15.10 Other stimulant abuse, uncomplicated; Z59.0 Homelessness; T38.0X5A Adverse effect of glucocorticoids and synthetic analogues, initial encounter; D72.829 Elevated white blood cell count, unspecified; Y92.9 Unspecified place or not applicable
CPT/HCPCS: 31720; 36415; 36600; 70450-TC; 71045-TC; 80048-TC; 80053-TC; 80061-TC; 80076-TC; 80164-TC; 81001; 82140-TC; 82533; 82962-TC; 83540-TC; 83605-TC; 83735-TC; 84100-TC; 84443-TC; 84478-TC; 84484-TC; 84702-TC; 85025-TC; 85730-TC; 87040-TC; 87081-TC; 87086-TC; 93307-TC; 94002-TC; 94003-TC; 94760-TC; 94799-TC; 97112-TC; 97116-TC; 97530-TC; C1751; C9803; G0378; G0480; J1650; J1720; J2060; J2310; J2405; J2543; J3370; J3480; J3490; J7030; J7040; J7050; J7060